=== PATIENT | female | born 1995 | race African-American/Black ===

== ENCOUNTER 2020-07-16 17:13 | Emergency (ER) | payer SELFPAY | END 2020-07-16 17:50 | disposition home or self-care (01) | LOC: CSHERS 17:13 | DX: S69.91XA Unspecified injury of right wrist, hand and finger(s), initial encounter (principal); X50.3XXA Overexertion from repetitive movements, initial encounter | CPT/HCPCS: 99283 ==

== ENCOUNTER 2022-02-28 16:35 | Emergency (ER) | payer SELFPAY ==
[2022-02-28] MEDS ORDERED: Ibuprofen 200 MG TAB ONE (17:19)
== END 2022-02-28 17:20 | disposition home or self-care (01) ==
LOC: CSHERS 16:35
DX: R51.9 Headache, unspecified (principal)
CPT/HCPCS: 99283